=== PATIENT | male | born 1985 | race Caucasian/White ===

== ENCOUNTER 2019-09-13 18:39 | Emergency (ER) | payer MEDICARE, SELFPAY ==
[2019-09-13 18:44] VITALS: BP 129/72; PULSE 78; RESP 16; TEMP 37; O2SAT 96; BMI 24.4
--- NOTE | 2019-09-13 18:45 | W.ED.EXTPRO ---
HPI - Extremity Problem General: Chief complaint: Extremity Injury, Upper Stated complaint: fall, hand swelling Time Seen by Provider: 09/13/19 18:45 Source: patient Mode of arrival: ambulatory Limitations: no limitations History of Present Illness: HPI Narrative: 34-year-old male reports that about 5 days ago he was chasing after his kids and fell hurting his right hand. Patient states he was holding something in his hand and somehow he injured it. Patient comes in today due to continued discomfort and difficulty making a fist with the right hand. Review of Systems General: Reports: 10 or more systems reviewed and unremarkable except in HPI and below Musc: Reports: extremity pain (right hand) Physical Exam Const: COMMON NORMALS: no acute distress and patient oriented x3 GENERAL APPEARANCE: cooperative HENMT: COMMON NORMALS: normocephalic and Normal external nose present HEAD & SCALP: normal to inspection and normocephalic NOSE: Normal external nose present Eye: GENERAL EYE: appearance normal, both eyes and all related structures Neck/C-Spine: COMMON NORMALS: full ROM Chest: COMMONS NORMALS: normal inspection of the chest Resp: COMMON NORMALS: normal respiratory effort EFFORT & INSPECTION: Yes able to speak in complete sentences Cardio: COMMON NORMALS: regular rate and regular rhythm RATE: regular rate RHYTHM: regular rhythm GI: COMMON NORMALS: non-tender Back/Pelvis: COMMON NORMALS: thoracic and lumbar spine normal to inspection Extremity: NARRATIVE EXTREMITY EXAM: 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 Patient does have good range of motion of the digits, tendon normal tendon function, normal sensation and motor function. Tenderness is noted to the fifth MCP joint. Minimal swelling is noted to the hand. Neuro: COMMON NORMALS: patient oriented x3 and moves all extremities Psych: COMMON NORMALS: mental status grossly normal and cooperative Skin: COMMON NORMALS: no rashes or lesions noted GENERAL SKIN EXAM: no rashes or lesions noted Course Vital Signs: Vital signs: Vital Signs Temperature 98.6 F 09/13/19 18:44 Pulse Rate 78 09/13/19 18:44 Respiratory Rate 16 09/13/19 18:44 Blood Pressure 129/72 09/13/19 18:44 Pulse Oximetry 96 09/13/19 18:44 MDM - Extremity (Nontraumatic) MDM Narrative: Medical decision making narrative: Patient presents today with complaints of injury to the right hand. On exam at the distal fifth metacarpal patient has some tenderness. No obvious deformity. Minimal swelling. Differential diagnosis includes fracture, sprain, contusion. X-ray notes a nondisplaced fracture of the distal fifth metacarpal. Patient was placed in a ulnar gutter splint with recommendations for follow-up with orthopedics. Patient reports understanding of care plan and need for follow-up. Discharge Plan Discharge Patient Disposition: Home, Self-Care Clinical Impression: Fracture of fifth metacarpal bone Qualifiers: Encounter type: initial encounter Fracture type: closed Metacarpal location: neck Fracture alignment: nondisplaced Laterality: right Qualified Code(s): S62.366A - Nondisplaced fracture of neck of fifth metacarpal bone, right hand, initial encounter for closed fracture Condition: Stable Discharge Orders: Discharge Order (Routine); Ordered 09/13/19 Ordered By: Fidel Pedraza Discharge Diet: Usual diet Discharge Activity: Limit activity as instructed Patient Instructions: Splint Care (ED) Activity Restrictions/Additional Instructions: Keep splint clean and dry. Activity as tolerated. Acetaminophen and ibuprofen for pain. Follow-up with orthopedics for further treatment and evaluation. Return to the ER for new concerns. Case management will contact you regarding follow-up with orthopedics. Coding Level of Care Code ED [employer] for [facility] Exam Comprehensive
--- NOTE | 2019-09-13 18:48 | XRR_ITS ---
PROCEDURE INFORMATION: Exam: XR Right Hand Exam date and time: 09/13/2019 6:49 PM Age: 34 years old Clinical indication: Injury or trauma; Fall; Initial encounter; Blunt trauma (contusions or hematomas; Hand; Right TECHNIQUE: Imaging protocol: XR Right hand. Views: 3 or more views. COMPARISON: No relevant prior studies available. FINDINGS: Bones/joints: Fracture of the distal metaphysis of the fifth metacarpal with volar angulation of the distal fracture fragment. Findings are consistent with a boxer's fracture. No dislocation. Normal bone mineralization. Soft tissues: Mild soft tissue swelling over the distal 5th metacarpal. No radiopaque foreign body. XR/XR hand RT min 3V* [id number] IMPRESSION: 1. Findings consistent with a boxer's fracture of the distal fifth metacarpal. 2. Mild soft tissue swelling over the distal 5th metacarpal.
[2019-09-13 19:59] VITALS: BP 131/66; PULSE 74; RESP 14; O2SAT 96
--- NOTE | 2019-09-15 15:44 | DCPLANNER ---
city manager had message to schedule a follow up appointment for patient with ortho. city manager called the ortho clinic, spoke with Pat, gave clinic patients information. city manager was told that patients information would be printed and reviewed. Clinic will call patient with appointment information.
--- NOTE | 2019-09-17 14:54 | DCPLANNER ---
Patient has a follow up appointment scheduled for Sunday, September 18, [address] at [address] Dykes. Clinic will call patient with appointment information.
--- NOTE | 2019-09-19 08:04 | DCPLANNER ---
Patient did not attend appointment scheduled for 09.18.19 with the ortho clinic.
== END 2019-09-13 20:00 | disposition home or self-care (01) ==
PROVIDERS: Emergency Provider Nurse Practitioner Family
DX: S62.366A Nondisplaced fracture of neck of fifth metacarpal bone, right hand, initial encounter for closed fracture (principal); W19.XXXA Unspecified fall, initial encounter
CPT/HCPCS: 12345; 29125; 73130; 99281; 99283